=== PATIENT | female | born 1960 | race Caucasian/White ===

== ENCOUNTER → 2018-09-09 16:43 | Outpatient (REF) | payer SELFPAY ==
[2018-09-09 18:57] LABS: Rubella Antibody IgG > 350.0 IU/mL (>15)
[2018-09-11 13:42] LABS: Rubeola Measles IgG > 300.00 AU/mL (< 25.00)
[2018-09-12 16:54] LABS: QuantiFERON TB NEGATIVE (Negative)
== END ==
LOC: LAB 16:43
PROVIDERS: PCP Nurse Practitioner Family
DX: Z11.1 Encounter for screening for respiratory tuberculosis (principal)
CPT/HCPCS: 36415; 86480; 86735; 86762; 86765

== ENCOUNTER → 2019-06-05 18:58 | Outpatient (CLI) | payer OTHER, SELFPAY | PROVIDERS: PCP Nurse Practitioner Family | DX: Z23 Encounter for immunization (principal) | CPT/HCPCS: 90471; 90686 ==

== ENCOUNTER → 2020-05-27 | Outpatient (CLI) | payer OTHER, SELFPAY | PROVIDERS: PCP Internal Medicine; Referring Provider Internal Medicine; Visit Provider Internal Medicine | DX: Z23 Encounter for immunization (principal) | CPT/HCPCS: 90471; 90686 ==

== ENCOUNTER → 2020-09-02 08:42 | Outpatient (CLI) | payer OTHER, SELFPAY ==
[2020-09-02] MEDS: COVID-19 VACC(MODERNA-1)/PF 100 MCG/0.5 ML VIAL IM (08:46)
== END ==
PROVIDERS: PCP Internal Medicine; Visit Provider Internal Medicine
DX: Z23 Encounter for immunization (principal)
CPT/HCPCS: 0011A; 91301

== ENCOUNTER → 2020-09-29 08:44 | Outpatient (CLI) | payer OTHER, SELFPAY ==
[2020-09-29] MEDS: COVID-19 VACC #2, MRNA(MOD) 100 MCG/0.5 ML VIAL IM (08:51)
== END ==
PROVIDERS: PCP Internal Medicine; Visit Provider Internal Medicine
DX: Z23 Encounter for immunization (principal)
CPT/HCPCS: 0012A; 91301

== ENCOUNTER → 2021-02-23 08:36 | Outpatient (CLI) | payer OTHER, SELFPAY ==
[2021-02-23 11:22] LABS: COVID19 -Nasal RAPID Negative (Negative)
== END ==
PROVIDERS: PCP Internal Medicine; Referring Provider Student in an Organized Health Care Education/Training Program; Visit Provider Student in an Organized Health Care Education/Training Program
DX: Z01.812 Encounter for preprocedural laboratory examination (principal); Z20.822 Contact with and (suspected) exposure to COVID-19
CPT/HCPCS: 87635

== ENCOUNTER 2021-02-25 13:31 | Day surgery (SDC) | payer OTHER, SELFPAY ==
--- NOTE | 2021-02-25 | PATH_ITS ---
[facility] Accession Number: [id number] . 01 Material submitted: . PART A: colon - SPLENIC FLEXURE 3MM PART B: colon - SIGMOID POLYP 8MM . 02 Diagnosis: A. Splenic Flexure, 3 mm: Tubular adenoma. . B. Sigmoid Polyp, 8 mm: Portions of hyperplastic polyp x 2. MRV 03/02/2021 1434 Local . 02 Electronically signed: . Anita Ruiz MD, Pathologist NPI- [id number] . 01 Gross description: . Part A: SPLENIC FLEXURE 3MM: Received in formalin is 1 fragment(s) of champion, soft tissue measuring 0.7 x 0.4 x 0.2 cm submitted entirely in 1 cassette(s) Part B: SIGMOID POLYP 8MM: Received in formalin are 2 fragment(s) of champion, soft tissue measuring 0.7 x 0.2 x 0.2 cm to 0.4 x 0.2 x 0.2 cm submitted entirely in 1 cassette(s) /JADIEL 02/26/2021 0653 Local . 02 Pathologist provided ICD-10: K63.5 . 02 CPT . 008917, 170370 Performed at: 01 [facility] [address], [place], [place] [id number] MD Murray Cali MD Phone: [phone] Performed at: 02 [facility] [address] [place], [place] [id number] MD Shital Ca MD Phone: [phone]
--- NOTE | 2021-02-25 12:20 | P.HP_ITS ---
History of Present Illness History of Present Illness Date Patient Seen: 02/25/21 Chief complaint: [facility] [place] [facility] [place] Narrative: 60 Years Old Female seen today for consideration of a screening colonoscopy. Last colonoscopy in 2013, 8 polyps, mixture of tubular adenomas and hyperplastic. There have been no lower GI symptoms suggesting disease such as change in bowel habits, bleeding, abdominal pain or anemia. Her brother has had colon polyps. Overall health issues have been stable, including no major cardiac events for at least 6 weeks. Past Medical History: Menopause MMR titer- positive(09/13/18) TB Gold Quantiferon negative(09/13/18) Prediabetes Hyperlipidemia Hypertension Obesity Past Surgical History: Tubal Ligation (1981) Uterine Fibroid Tumors (2003) Uterine ablation, age 42 Colonoscopy Family History: Father: (0) Alive - Stroke, Diabetes, High Blood Pressure Mother: - Age 73 COPD, Alcohol/Substance Abuse, High Blood Pressure, Osteoporosis, Heart Disease Siblings: Brother (1960) Colon polyps Brother (1961) Sister (1964) Diabetes Mellitus Sister (1966) Thyroid Social History: Marital Status: - Septic Dnvpvia-Stfzjx-Fjuj Children: G2, P2; Clifford (1981); Jacki (1983) Occupation: Inpatient Accounts, [employer] Education: 14 years Drink 3-4/week Meds Home Medications and Allergies Home Medications Medication Instructions Recorded Confirmed Type hydrochlorothiazide 25 mg tablet 25 mg PO DAILY 02/25/21 02/25/21 History lisinopril 10 mg tablet 10 mg PO DAILY 02/25/21 02/25/21 History Allergies Allergy/AdvReac Type Severity Reaction Status Date / Time No Known Drug Allergies Allergy Verified 02/25/21 13:42 Review of Systems Review of Systems Narrative: 10 point review of systems completed and found to be noncontributory except for items mentioned in HPI. Exam Narrative Exam Narrative: GENERAL: Alert and oriented, appearing stated age and in no acute distress. HEENT: Head normocephalic/atraumatic. LUNGS: Clear to ausculation bilaterally, no wheezes, rhonchi or rales. CV: Normal S1 and S2 with regular rate and rhythm, no audible murmurs, rubs or gallops. ABDOMEN: Soft, non-tender, non-distended, no organomegaly. Positive bowel sounds. EXTREMITIES: No clubbing, cyanosis, or edema. NEURO: Cranial nerves II through XII grossly intact, no focal deficits. PSYCH: Alert and oriented x 3. SKIN: No concerning lesions. Assessment & Plan Assessment & Plan narrative: 1. History of colon polyps 2. Family history of colon polyps 3. Screening for colon cancer Plan for colonoscopy. The nature and character of the procedure as well as anticipated results were discussed. The possibility of not completing the procedure was also discussed. Possible complications including aspiration pneumonia, bleeding, perforation and reaction to medications either for sedation or preparation and missed lesions were discussed. Questions were answered and proceeding to the colonoscopy was elected. Informed consent signed. I sincerely appreciate the referral allowing me to participate in this patient's care. Please contact me with any questions or concerns.
--- NOTE | 2021-02-25 12:22 | PM.OP.ENDO ---
Operative Date/Time/Diagnoses Date of procedure: 02/25/21 Procedure Notes SCOAP/Timeout: 2:28 p.m. Procedure in detail: ENDOSCOPIST: Jory Bell MD Sedation RN: Antonia Falk RN Sedation start time: 2:29 p.m. Sedation end time: 2:52 p.m. PROCEDURE: Colonoscopy with biopsy, cold INDICATIONS: 1. History of colon polyps 2. Family history of colon polyps 3. Screening for colon cancer MEDICATION: Levsin 0.125 mg sublingual, incremental doses of Versed and fentanyl until appropriate level sedation achieved. ASA CLASS: 2 CECAL WITHDRAWAL TIME: 15 minutes COMPLICATIONS: None. EXTENT OF PROCEDURE: Cecum. QUALITY OF PREP: Good with portions of liquid stool. PROCEDURE: Prior to insertion of the colonoscope, a digital rectal examination was accomplished with circumferential palpation of the distal rectal mucosa without significant findings being noted. The high-definition pediatric colonoscope was passed into the rectum in the usual fashion and advanced over to the cecum without difficulty. The ileocecal valve, appendiceal stoma, and medial wall all could be inspected and no abnormalities were seen. ASCENDING COLON: As the colonoscope was withdrawn, care was taken to expose and inspect the haustral folds and no abnormalities were seen. HEPATIC FLEXURE: Normal, no polyps, diverticula or other abnormalities. TRANSVERSE COLON: Normal, no polyps, diverticula or other abnormalities. DESCENDING COLON: A 3 mm polyp was seen at the splenic flexure and removed with cold biopsy forceps. Otherwise, normal, no diverticula or other abnormalities. SIGMOID COLON: An 8 mm polyp was seen and removed with cold biopsy forceps. Otherwise, a few scattered diverticula and no other abnormalities. RECTUM: Normal. J maneuver was produced. There was no significant perianal disease. The J maneuver was broken. The remainder of the rectum was inspected and there was no external hemorrhoid disease. The scope was withdrawn. IMPRESSION: 1. Splenic flexure polyp x1, 3 mm, removed with cold biopsy forceps 2. Sigmoid polyp x1, 8 mm, removed with cold biopsy forceps 3. Sigmoid diverticulosis, minor PLAN: 1. Follow-up in clinic status post pathology results. The possibility of a missed lesion including a malignancy has been discussed with the patient previously. Potential alarm symptoms have been discussed and should be reported immediately.
[2021-02-25 13:44] VITALS: BP 122/81; PULSE 89; RESP 16; TEMP 36.7; O2SAT 95; BMI 32.5
[2021-02-25] MEDS: LACTATED RINGERS 1,000 ML 200 ML IV (14:00)
[2021-02-25] MEDS: HYOSCYAMINE 0.125 MG TABLET PO (14:00)
[2021-02-25] MEDS: MIDAZOLAM 5 MG/5 ML VIAL IV (14:41)
[2021-02-25] MEDS: fentaNYL 250 MCG/5 ML INJ IV (14:41)
[2021-02-25 14:57] VITALS: BP 90/50; PULSE 82; RESP 14; TEMP 36.8; O2SAT 96
[2021-02-25 15:02] VITALS: BP 83/53; PULSE 85; RESP 17; O2SAT 96
[2021-02-25 15:07] VITALS: BP 96/55; PULSE 78; RESP 12; O2SAT 96
[2021-02-25 15:11] VITALS: BP 103/62; PULSE 87; RESP 12; TEMP 37; O2SAT 97
[2021-02-25 15:22] VITALS: BP 94/78; PULSE 77; RESP 15; TEMP 36.1; O2SAT 98
== END 2021-02-25 15:22 | disposition home or self-care (01) ==
PROVIDERS: PCP Internal Medicine; Referring Provider Student in an Organized Health Care Education/Training Program; Visit Provider Student in an Organized Health Care Education/Training Program
PROC: 0DJD8ZZ Inspection of Lower Intestinal Tract, Via Natural or Artificial Opening Endoscopic (ICD-10-PCS; CPT 45378; principal; 2021-02-25 14:30)
DX: Z12.11 Encounter for screening for malignant neoplasm of colon (principal); K57.30 Diverticulosis of large intestine without perforation or abscess without bleeding; E78.5 Hyperlipidemia, unspecified; I10 Essential (primary) hypertension; E66.9 Obesity, unspecified; R73.03 Prediabetes; D12.6 Benign neoplasm of colon, unspecified
CPT/HCPCS: 45380; J2250; J3010

== ENCOUNTER → 2021-06-09 | Outpatient (CLI) | payer OTHER, SELFPAY | PROVIDERS: PCP Internal Medicine; Referring Provider Internal Medicine; Visit Provider Internal Medicine | DX: Z23 Encounter for immunization (principal) | CPT/HCPCS: 90471; 90686 ==

== ENCOUNTER → 2021-06-10 17:05 | Outpatient (CLI) | payer OTHER, SELFPAY ==
[2021-06-10 17:56] LABS: Add Manual Diff / Slide Review NO; Basophils Absolute Auto 100 /uL (0-100); Basophils Percent Auto 1.1 % (0-2); Eosinophils Absolute Auto 100 /uL (0-450); Eosinophils Percent Auto 1.7 % (2-4); Hematocrit 42.8 % (36-46); Hemoglobin 14.5 g/dL (12.0-16.0); Lymphocytes Absolute Auto 3400 /uL (1100-4500); Lymphocytes Percent Auto 43.9 % (25-40); Mean Corpuscular Hemoglobin 32.1 PG (26-34); Mean Corpuscular Volume 94.5 fL (80-100); Monocytes Absolute Auto 600 /uL (0-900); Monocytes Percent Auto 7.8 % (3-14); Neutrophils Absolute Auto 3500 /uL (1500-7000); Neutrophils Percent Auto 45.5 % (50-75); Platelet Count 222 X10^3/uL (150-400); Red Blood Cell Count 4.53 X10^6/uL (4.0-5.2); Red Cell Distribution Width 12.6 % (11.6-14.8); White Blood Cell Count 7.8 X10^3/uL (4.5-11.0)
[2021-06-10 17:59] LABS: Alanine Aminotransferase 60 IU/L (<35); Albumin 4.6 g/dL (3.5-5.0); Albumin Globulin Ratio 1.5 (1.0-2.8); Alkaline Phosphatase 122 U/L (38-126); Aspartate Aminotransferase 43 IU/L (14-36); BUN Creatinine Ratio 27.9 (6-22); Bilirubin Total 0.5 mg/dL (0.2-1.3); Blood Urea Nitrogen 19 mg/dL (7-17); Calcium 9.6 mg/dL (8.4-10.2); Carbon Dioxide 23 mmol/L (22-32); Chloride 104 mmol/L (98-107); Estimated Glomerular Filt Rate > 60.0 mL/min (>60); Glucose 95 mg/dL (80-110); HEMOLYSIS < 15 (0-50); Sodium 138 mmol/L (137-145); Total Protein 7.6 g/dL (6.3-8.2)
[2021-06-10 18:04] LABS: High Sensitivity CRP - Cardiac 1.7 mg/L (1.0-3.0)
[2021-06-10 18:05] LABS: Rheumatoid Factor < 8.6 IU/mL (<12.0)
[2021-06-10 18:19] LABS: Erythrocyte Sedimentation Rate 7 MM/HR (0-20)
[2021-06-10 18:29] LABS: Thyroid Stimulating Hormone 2.93 uIU/mL (0.47-4.68)
[2021-06-11 17:36] LABS: SS A Ro Sjogrens Antibody < 0.2 AI (0.0-0.9); SS B La Sjogrens Antibody < 0.2 AI (0.0-0.9)
[2021-06-12 12:07] LABS: ANA Screen, IFA Negative (.)
== END ==
PROVIDERS: PCP Internal Medicine; Referring Provider Ophthalmology; Visit Provider Ophthalmology
DX: H15.101 Unspecified episcleritis, right eye (principal); M35.00 Sjogren syndrome, unspecified
CPT/HCPCS: 36415; 80053; 84443; 84550; 85025; 85651; 86038; 86140; 86235; 86430

== ENCOUNTER → 2021-07-08 12:21 | Outpatient (CLI) | payer OTHER, SELFPAY ==
[2021-07-08] MEDS: COVID-19 VACC #3, MRNA(MOD) 50 MCG/0.25 ML VIAL IM (12:27)
== END ==
PROVIDERS: PCP Internal Medicine; Visit Provider Internal Medicine
DX: Z23 Encounter for immunization (principal)
CPT/HCPCS: 0013A; 91301

== ENCOUNTER → 2021-09-23 07:12 | Outpatient (CLI) | payer OTHER, SELFPAY ==
[2021-09-23 08:18] LABS: Add Manual Diff / Slide Review NO; Basophils Absolute Auto 100 /uL (0-100); Basophils Percent Auto 0.8 % (0-2); Eosinophils Absolute Auto 100 /uL (0-450); Eosinophils Percent Auto 1.8 % (2-4); Hematocrit 41.4 % (36-46); Hemoglobin 14.1 g/dL (12.0-16.0); Lymphocytes Absolute Auto 3000 /uL (1100-4500); Lymphocytes Percent Auto 41.4 % (25-40); Mean Corpuscular HGB Conc 34.2 % (30-36); Mean Corpuscular Hemoglobin 31.4 PG (26-34); Monocytes Absolute Auto 600 /uL (0-900); Monocytes Percent Auto 8.3 % (3-14); Neutrophils Absolute Auto 3500 /uL (1500-7000); Neutrophils Percent Auto 47.7 % (50-75); Platelet Count 239 X10^3/uL (150-400); Red Cell Distribution Width 12.1 % (11.6-14.8); White Blood Cell Count 7.3 X10^3/uL (4.5-11.0)
[2021-09-23 08:32] LABS: Alanine Aminotransferase 41 IU/L (<35); Albumin 4.5 g/dL (3.5-5.0); Albumin Globulin Ratio 1.4 (1.0-2.8); Alkaline Phosphatase 70 U/L (38-126); Aspartate Aminotransferase 33 IU/L (14-36); BUN Creatinine Ratio 21.6 (6-22); Bilirubin Total 1.1 mg/dL (0.2-1.3); Blood Urea Nitrogen 16 mg/dL (7-17); Calcium 9.7 mg/dL (8.4-10.2); Carbon Dioxide 27 mmol/L (22-32); Chloride 104 mmol/L (98-107); Cholesterol 214 mg/dL (140-199); Estimated Glomerular Filt Rate > 60.0 mL/min (>60); Globulin 3.3 g/dL (1.7-4.1); Glucose 109 mg/dL (80-110); HDL Cholesterol 49 mg/dL (40-60); HEMOLYSIS < 15 (0-50); LDL Cholesterol Calculated 129 mg/dL (<100); Potassium 4.1 mmol/L (3.4-5.1); Sodium 138 mmol/L (137-145); Total Protein 7.8 g/dL (6.3-8.2); Triglycerides 178 mg/dL (35-150)
== END ==
PROVIDERS: PCP Internal Medicine; Referring Provider Ophthalmology; Visit Provider Ophthalmology
DX: R73.03 Prediabetes (principal); I10 Essential (primary) hypertension; E78.2 Mixed hyperlipidemia; H20.021 Recurrent acute iridocyclitis, right eye
CPT/HCPCS: 80053; 80061; 85025

== ENCOUNTER → 2021-09-23 07:17 | Outpatient (CLI) | payer OTHER, SELFPAY ==
[2021-09-23 08:22] LABS: Hemoglobin A1C% w Est Avg Glu 5.8 % (4.0-6.0)
[2021-09-23 09:07] LABS: Creatinine Urine Random 51.9 mg/dL
[2021-09-23 09:13] LABS: Microalbumin Urine Random < 0.6 mg/dL (0-1.6)
[2021-09-30 23:23] LABS: HLA B27 Negative (.)
== END ==
PROVIDERS: PCP Internal Medicine; Visit Provider Internal Medicine
DX: Z13.220 Encounter for screening for lipoid disorders (principal); Z13.9 Encounter for screening, unspecified
CPT/HCPCS: 36415; 81374; 82043; 82570; 83036

== ENCOUNTER → 2022-05-26 15:44 | Outpatient (CLI) | payer OTHER, SELFPAY | PROVIDERS: PCP Internal Medicine; Referring Provider Internal Medicine; Visit Provider Internal Medicine | DX: Z23 Encounter for immunization (principal) | CPT/HCPCS: 90471; 90686 ==

== ENCOUNTER → 2023-06-14 09:08 | Outpatient (CLI) | payer OTHER, SELFPAY | PROVIDERS: PCP Internal Medicine; Referring Provider Family Medicine; Visit Provider Family Medicine | DX: Z23 Encounter for immunization (principal) | CPT/HCPCS: 90471; 90686 ==

== ENCOUNTER → 2024-06-04 19:11 | Outpatient (CLI) | payer OTHER, SELFPAY | PROVIDERS: PCP Internal Medicine; Referring Provider Internal Medicine; Visit Provider Internal Medicine | DX: Z23 Encounter for immunization (principal) | CPT/HCPCS: 90471; 90656 ==

== ENCOUNTER → 2025-07-26 07:12 | Outpatient (CLI) | payer OTHER, SELFPAY ==
--- NOTE | 2025-07-26 07:13 | DI.MRI.S_ITS ---
PROCEDURE: MR KNEE RT WO CON INDICATIONS: Mechanical symptoms, loose body evaluation/meniscal injury TECHNIQUE: Noncontrast sagittal PD fast spin echo and T2 fast spin echo with fat saturation, sagittal 3-D FLASH with fat saturation; coronal T1 spin echo and PD fast spin echo with fat saturation, and axial PD fast spin echo with fat saturation through the knee. COMPARISON: [facility], CR, XR KNEE RT 3V, 04/29/2025, 11:53. FINDINGS: Image quality: Excellent. Anterior cruciate ligament: Intact. Posterior cruciate ligament: Intact. Medial collateral ligament: Intact. Lateral collateral ligament: Intact. Medial meniscus: Horizontal tearing at the body and posterior horn of the medial meniscus extending to the inner third of the tibial articular surface and the free edge margin. Lateral meniscus: Complex tearing of the lateral meniscus. A large displaced meniscal flap is seen arising from the anterior horn of the lateral meniscus extending anterior superiorly along the lower trochlear groove. There is a diminutive appearance of the residual or meniscus with superimposed diffuse horizontal oblique tearing of the meniscal rim. Medial and lateral tendons: The semimembranosus tendon insertions appear intact. Visualized portions of the pes anserinus tendons appear normal. The popliteus tendon is intact. Iliotibial band appears normal. Anterior structures: Small suprapatellar enthesophyte. Mild distal quadriceps and distal patellar tendinosis. No patellar subluxation. No femoral trochlear dysplasia or ventral trochlear prominence. No edema in the infrapatellar fat pad. Bones: No bone marrow contusions or fractures. Medial femorotibial cartilage: Mild partial-thickness cartilage irregularity in the weight-bearing portion of the medial femorotibial compartment. Lateral femorotibial cartilage: High-grade partial-thickness cartilage loss at the central posterior weight-bearing portion of the lateral femoral condyle and lateral tibial plateau. Patellofemoral cartilage: Moderate partial-thickness cartilage irregularity deep cartilage fissuring at the median ridge of the patella and the adjacent medial and lateral patellar facets. Partial-thickness cartilage irregularity at the trochlear groove. Soft tissues: Moderate joint effusion. Small medial popliteal cyst with mild surrounding edema that may indicate prior cyst rupture. Mild nonspecific prepatellar subcutaneous soft tissue edema. IMPRESSION: 1. Complex tearing of the lateral meniscus with a displaced meniscal flap at the anterior horn extending superiorly along the trochlear groove. There is complex oblique tearing of the nondisplaced meniscal rim. 2. Horizontal oblique tearing of the body and posterior horn of the medial meniscus extending to the inner third of the tibial articular surface and the free edge margin. 3. Grade 3 chondromalacia in the central to posterior weight-bearing portion of the lateral femorotibial compartment. Grade 2-3 chondromalacia in the patellofemoral compartment and mild grade 2 chondromalacia in the medial femorotibial compartment. 4. Cruciate and collateral ligaments are intact. No acute trabecular bone injury. 5. Moderate joint effusion. Small medial popliteal cyst with signs of prior cyst rupture. Approved by: Osmel Schafer M.D. on 07/27/2025 at 8:59
== END ==
LOC: MRI 07:13
PROVIDERS: PCP Registered Nurse; Referring Provider Registered Nurse; Visit Provider Physician Assistant Surgical
DX: S83.271A Complex tear of lateral meniscus, current injury, right knee, initial encounter (principal); S83.241A Other tear of medial meniscus, current injury, right knee, initial encounter; M22.41 Chondromalacia patellae, right knee; M71.21 Synovial cyst of popliteal space [Baker], right knee; M25.461 Effusion, right knee; X58.XXXA Exposure to other specified factors, initial encounter
CPT/HCPCS: 73721

== ENCOUNTER 2025-08-05 07:53 | Day surgery (SDC) | payer OTHER, SELFPAY ==
[2025-08-03 08:06] VITALS: BMI 32.5
--- NOTE | 2025-08-05 08:36 | PM.PREOP ---
Pre-operative Note COVID-19 COVID-19 status: Not tested Interval Note History & Physical reviewed/Exam performed by Physician: Yes Changes to H&P: No
[2025-08-05 08:42] VITALS: BP 106/61; PULSE 72; RESP 16; TEMP 36.3; O2SAT 97
[2025-08-05] MEDS: ACETAMINOPHEN IV 1,000 MG/100 ML VIAL 400 MG IV (08:47)
[2025-08-05] MEDS: LACTATED RINGERS 1,000 ML 42 ML IV (08:47)
--- NOTE | 2025-08-05 09:20 | SUR.OPER ---
Supine on padded OR bed, head on pillow, arms secured on padded arm boards at <90 degrees abduction, legs uncrossed, safety belt at thigh, tape over blanket over lower non-operative leg. Lateral thigh support in place on operative side per surgeon direction. Surgeon approved of final position prior to start of procedure.
[2025-08-05] MEDS: SODIUM CHLORIDE IRRIG SOLUTION 3,000 ML, EPINEPHrine 3 MG IRR ×2 (09:28→09:29)
[2025-08-05 09:56] VITALS: BP 81/46; PULSE 80; RESP 16; TEMP 36.9; O2SAT 94
[2025-08-05 09:57] VITALS: BP 82/44; PULSE 79; RESP 16; O2SAT 93
--- NOTE | 2025-08-05 10:02 | P.OP_ITS ---
Operative Date/Time/Diagnoses Date of procedure: 08/05/25 Time of procedure: 09:30 Pre-op diagnosis: right knee medial and lateral meniscal tears Post-op diagnosis: same Procedure & Clinicians Procedure: right knee arthroscopy with medial and lateral meniscal debridements and chondroplasty Same procedure(s) as scheduled: Yes Surgeon: Shital Funez Assisted?: Yes Publishing Systems Analyst: Kimi Pfeiffer Anesthesia Type: General Operative Notes Findings: see below Closure Type: primary Specimen(s): none sent Applied: none Estimated Blood Loss (mL): 1 Blood products transfused: none Tourniquet time (min): 18 Procedure in detail: Preoperative diagnosis: Right Medial meniscus tear and lateral meniscal tear Procedure performed: Right knee medial arthroscopic partial menisectomy and chondroplasty and discoid meniscus lateral meniscal debridement Postoperative diagnosis: Right knee medial meniscus tear and lateral meniscus 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 Kimi Pfeiffer PA-C Anesthesia: General LMA EBL: 1 ml Tourniquet: ?18 minutes @ 250 mmHg Implants: None Indication For Surgery: ?See Pre-op H&P Examination Under Anesthesia: ROM equal to the contralateral side. Grade I Karen Stable to varus and valgus stressing at 0 & 30 degrees. No mechanical sensations Diagnostic Arthroscopy: Loose bodies: None Synovium: exuberant fat pad Patella cartilage: Grade II chondromalacia? Trochlear cartilage: Grade II chondromalacia? Medial femoral condyle cartilage: intact Medial tibial plateau cartilage: intact Medial meniscus: ?Degenerative tear ACL: intact PCL: intact Lateral femoral condyle cartilage: intact Lateral tibial plateau cartilage: intact Lateral meniscus: Large flap that was flipping in and out of the notch - likely discoid meniscus because there was a large amount of discoid rim remaining. Procedure in Detail: The patient was met in the pre-operative hold area. Consent was verified and operative extremity was signed. The patient was brought back to the operating room. The patient was placed supine position on the operating table. A general anesthetic was administered. A well-padded tourniquet was placed on the thigh. An exam under anesthesia was performed with the above findings.? The lower extremity was then prepped and draped in the usual sterile fashion. A timeout was performed per protocol. All members of the operating team were in agreement, and we proceeded. The Esmarch was used to exsanguinate the limb and the tourniquet was inflated. An 11 blade scalpel was used to make an anterolateral arthroscopic portal. The arthroscope was introduced into the knee and the anteromedial portal was created under direct visualization using needle localization. A diagnostic arthroscopy was performed with the above-stated findings.? The meniscus tears were debrided and the cartilage flaps debrided. The wounds were irrigated.? The incisions were closed with Nylon sutures. ?A sterile dressing was applied. The patient was awakened and transferred to the recovery room in stable condition.? Thirty cc of 0.25% Marcaine was infiltrated at the end of the case. Postoperative Plan: Same day discharge Weightbearing as tolerated. Remove dressing in [address] bandaids over incision sites. Physical therapy to start after surgery. Follow up at 2 weeks for suture removal. Complications: none Post-operative Condition: stable Disposition: PACU
[2025-08-05 10:05] VITALS: BP 85/51; PULSE 82; RESP 16; O2SAT 95
== END 2025-08-05 11:18 | disposition home or self-care (01) ==
PROVIDERS: PCP Registered Nurse; Referring Provider Orthopaedic Surgery; Visit Provider Orthopaedic Surgery
PROC: (CPT 29870; principal; 2025-08-05 09:15)
DX: S83.241A Other tear of medial meniscus, current injury, right knee, initial encounter (principal); S83.281A Other tear of lateral meniscus, current injury, right knee, initial encounter; M17.11 Unilateral primary osteoarthritis, right knee; M94.261 Chondromalacia, right knee
CPT/HCPCS: 29880; J0131; J0165; J0689; J1100; J1885; J2405; J2704; J3010; J7120